=== PATIENT | female | born 1990 | race Caucasian/White ===

== ENCOUNTER → 2024-11-13 | Outpatient (CLI) | payer MEDICAID, SELFPAY ==
--- NOTE | 2024-11-13 13:30 | XR_ITS ---
Examination: CT abdomen, without intravenous contrast. CT pelvis, without intravenous contrast. CT abdomen, with intravenous contrast. CT pelvis, with intravenous contrast. 2-D sagittal coronal reconstructions. Date and time of exam:November 13, 2024, 1400 hours, comparison March 20, 2022 INDICATIONS: Right upper abdominal pain, diagnosis fatty liver 2 months ago, history right renal calculus, history bowel malrotation CTDI: vol (mGy) 20.9 DLP: (mGycm) 1264 Technique: Multiple 3.0 axial images of the abdomen and pelvis without intravenous contrast, 3.0 mm slice thickness. Multiple 3.0 postcontrast images abdomen and pelvis also obtained, post intravenous injection 60 cc [id number] 2-D sagittal and coronal reconstructions. Low dose protocols were performed. One or more of the following dose reduction techniques were used; automated exposure control, adjustment of the mA and/or KV according to patient size, use of iterative reconstruction technique. Findings: Fatty infiltration throughout the liver No gallstones Spleen not enlarged No pancreatic or adrenal mass Multiple right renal calculi 1 to 3 mm No hydronephrosis or ureteral calculi Normal appendix The right colon and cecum project in the left abdomen No bowel obstruction No pelvic mass Contracted urinary bladder IMPRESSION: No acute process in the abdomen or pelvis Consider hepatobiliary sonography follow-up Multiple right renal calculi
== END | disposition home or self-care (01) ==
PROVIDERS: PCP Nurse Practitioner Family; Referring Provider Nurse Practitioner Family; Visit Provider Nurse Practitioner Family
DX: N20.0 Calculus of kidney (principal)
CPT/HCPCS: 74178; A4649; Q9967